=== PATIENT | female | born 1935 | race Caucasian/White ===

== ENCOUNTER 2023-09-28 15:48 | Outpatient (CLI) | payer OTHER | END 2023-09-28 15:49 | disposition home or self-care (01) | LOC: BICULT 15:48 | PROVIDERS: ATTEND Nurse Practitioner Family | DX: R22.1 Localized swelling, mass and lump, neck (principal); I65.22 Occlusion and stenosis of left carotid artery | CPT/HCPCS: 76536 ==

== ENCOUNTER 2023-10-11 09:08 | Outpatient (CLI) | payer OTHER ==
[2023-10-11] MEDS ORDERED: Iopamidol 370 76% 100 ML VIAL ONE (13:00)
== END 2023-10-11 09:09 | disposition home or self-care (01) ==
LOC: BICCT 09:08
PROVIDERS: ATTEND Nurse Practitioner Family
DX: R22.1 Localized swelling, mass and lump, neck (principal); I65.23 Occlusion and stenosis of bilateral carotid arteries; E04.1 Nontoxic single thyroid nodule; R91.1 Solitary pulmonary nodule
CPT/HCPCS: 70491; 82565